=== PATIENT | female | born 1940 | race Caucasian/White ===

== ENCOUNTER → 2017-01-01 | Outpatient (CLI) | payer MEDICARE, OTHER ==
[~2017-01-01] MED LIST: ATORVASTATIN CA10 MG PO; ESCITALOPRAM OX20 MG PO; METOPROLOL TAR25 MG PO; OMEPRAZOLE40 M1 PO
--- NOTE | ~2017-01-01 | ST ---
Unit #: [id number]: [id number] Patient: SHERON CHOPRA [id number] [address] [address] [id number] O MR#: [id number] NAME: SHERON CHOPRA : 1940 SEX: F STUDY DATE/TIME: 01/01/2017 UNIT: [facility] ROOM: STUDY DESCRIPTION: Attending Physician: Noel Burton M.D. Referring Physician: Noel Burton M.D. Primary Care Physician: Sidra Sheffield A.P.R.N. CARDIOLOGY REPORT EXAM ECG portion of Lexiscan study. SUMMARY The patient underwent Lexiscan protocol. Patient's resting heart rate 52 beats per minute which increased to 77 beats per minute, representing 52% of the maximum age-predicted heart rate. Patient's maximum blood pressure was 162/64 mmHg. Patient's resting ECG showed normal sinus rhythm with normal ST segments. Nonspecific T wave changes seen on resting ECG with Lexiscan infusion. Patient continues to remain in normal sinus rhythm with preserved ST segments. There is no ventricular or supraventricular ectopy noted. There are no pauses noted. CONCLUSION 1. Negative ECG portion of the Lexiscan study for ischemia. 2. Perfusion imaging dictated above. Dictated by... Baljeet Carter/arleen TD: 01/01/2017 16:49 JOB #: [id number] CC: Noel Burton M.D. CARDIOLOGY REPORT Page 1 of 1 X SOHAM CARVALHO MD CARDIOLOGY REPORT
--- NOTE | ~2017-01-01 | TH ---
Unit #: [id number] #: [id number] Patient: SHERON CHOPRA [id number] [address] [address] [id number] O MR#: [id number] NAME: SHERON CHOPRA : 1940 SEX: F STUDY DATE/TIME: 01/01/2017 UNIT: [facility] ROOM: STUDY DESCRIPTION: Attending Physician: Noel Burton M.D. Referring Physician: Noel Burton M.D. Primary Care Physician: Sidra Sheffield A.P.R.N. CARDIOLOGY REPORT EXAM Nuclear stress test. INDICATIONS Dyspnea on exertion. ORDERING PHYSICIAN Dr. Noel Burton. SUMMARY Perfusion imaging: Patient underwent nuclear stress. Received a resting dose of 9.97 mCi and a stress dose of 30.7 mCi. On gated imaging, the patient appears to have normal wall motion with a preserved ejection fraction. The patient's LV EF is 72%. Perfusion imaging being rest and stress, there appears to be no reversible perfusion defects. CONCLUSION 1. No obvious ischemia on nuclear images. 2. Preserved ejection fraction. 3. ECG portion dictated below. Dictated by... Baljeet Carter/arleen TD: 01/01/2017 16:34 JOB #: [id number] CC: Noel Burton M.D. CARDIOLOGY REPORT Page 1 of 1 X SOHAM CARVALHO MD CARDIOLOGY REPORT
== END | disposition home or self-care (01) ==
LOC: CNUC 09:00
DX: R06.09 Other forms of dyspnea (principal); I50.30 Unspecified diastolic (congestive) heart failure; I51.7 Cardiomegaly; I34.0 Nonrheumatic mitral (valve) insufficiency; I36.1 Nonrheumatic tricuspid (valve) insufficiency
CPT/HCPCS: 78452; 93017; 93306; A9500; J2785